=== PATIENT | female | born 1945 | race Caucasian/White ===

== ENCOUNTER 2018-05-27 00:27 | Observation (INO) | payer MEDICARE ==
[2018-05-27] MEDS ORDERED: Diltiazem HCl 125 MG, Admixture Fee 1 EACH in Sodium Chloride 0.9% 100 ML IVPB SCH (03:00)
[2018-05-27] MEDS ORDERED: Ondansetron PF 4 MG/2 ML Vial IVP PRN (03:01)
[2018-05-27] MEDS ORDERED: Acetaminophen 325 MG TAB PO PRN (03:01)
[2018-05-27] MEDS ORDERED: Sodium Chloride 0.9% 1,000 ML IV SCH (03:01)
[2018-05-27] MEDS ORDERED: Ondansetron ODT 4 MG TAB SL PRN (03:01)
[2018-05-27 07:05] LABS: Troponin I 0.035 ng/mL (< 0.028)
[2018-05-27] MEDS ORDERED: Zolpidem Tartrate 5 MG TAB PO PRN (07:44)
--- NOTE | 2018-05-27 08:29 | HP ---
PRIMARY CARE PROVIDER: Sergey Dowell DO HISTORY OF PRESENT ILLNESS: The patient referred to [facility] through [facility] after transfer from [facility]. The patient referred for atrial fibrillation. The patient went to the emergency room with palpitations. She denies chest pain, orthopnea, paroxysmal nocturnal dyspnea, dyspnea on exertion, sweats. PAST MEDICAL HISTORY: Includes paroxysmal atrial fibrillation, dyslipidemia, osteoarthritis. CURRENT MEDICATIONS: 1. Meloxicam 15 mg once a day. 2. Zocor 20 mg a day. 3. Xanax 0.25 mg p.r.n. 4. Metoprolol 100 mg b.i.d. ALLERGIES: CODEINE GIVES GI SYMPTOMATOLOGY, ASPIRIN GIVES GI SYMPTOMATOLOGY. PAST SURGICAL HISTORY: She had a right mastectomy for cancer in 1989, received chemotherapy post. She had a lumpectomy on the left in 1999, received chemotherapy and radiation therapy. She has had L5 spine surgery 15 years ago. FAMILY HISTORY: She has a brother with diabetes. Her mother at 84 of old age. Father at 68 of lung cancer. SOCIAL HISTORY: . Full code status. surrogate decision maker. Tobacco 1/2 pack of cigarettes a day. Occasional beer. No illicit drugs. REVIEW OF SYSTEMS: GENERAL: No headaches, dizziness, fainting. EYES: No double vision, blurred vision, flashing lights. EAR, NOSE, AND THROAT: No ear pain or drainage. No nasal bleeding. No trouble swallowing. CARDIAC: See present Illness. RESPIRATION: No cough, wheezing, or asthma. GASTROINTESTINAL: No nausea, vomiting, diarrhea, constipation, or abdominal pain. GENITOURINARY: No hematuria, dysuria. MUSCULOSKELETAL: No pain or swelling in arms, legs. She has some joint pains for which she takes meloxicam. NEUROLOGIC: No strokes, seizures, or focal weakness. PSYCHIATRIC: Occasional anxiety spells she relates to her children. SKIN: No bruising, bleeding, rash. HEME/LYMPH: No tender or swollen lymph nodes in axilla, inguinal, or cervical area. PHYSICAL EXAMINATION: GENERAL: She is alert, pleasant, cooperative lady, in no acute distress. VITAL SIGNS: Pulse in the ER was 120 and irregular, respirations 17, temperature 98.5, blood pressure 118/60. HEAD, EYES, EARS, NOSE, AND THROAT: Revealed pupils are equal, round, and reactive to light. Extraocular movements are intact. Sclerae are white. Tympanic membranes clear. Nose is clear. Oral mucous membranes are wet. Dental hygiene is good. NECK: Supple without jugular venous distention, adenopathy, or thyromegaly. CHEST: Clear to auscultation and percussion. HEART: Regular rate and rhythm. First and second heart sounds are clear. There are no murmurs or gallops. ABDOMEN: Soft. Bowel sounds are normal. There is no hepatosplenomegaly. No mass. No rebound. EXTREMITIES: Reveal no cyanosis, clubbing, or edema. Joint survey reviews reveal no effusions or deformities. SKIN: Warm and dry without bruises or rash. HEME/LYMPH: No tender or swollen lymph nodes in the axilla, inguinal, or cervical area. PULSES: Carotid, radial, femoral, and dorsalis pedis pulses intact and symmetric. NEUROLOGIC: Cranial nerves 2 through 12 are intact. Deep tendon reflexes intact. Moves all extremities. IMAGING STUDIES: Chest x-ray reviewed by myself, no cardiomegaly, CHF, infiltrate. EKG; atrial fibrillation with rapid ventricular response. No acute ST-T abnormality. LABORATORY DATA: Troponin 0.027, 0.035. Lab done in the [place]; CBC unremarkable. White count 8.6, hemoglobin 12.6, platelet count 215,000. Liver profile is normal. BNP is elevated to 62, BUN is 30, creatinine 1.71. ADMITTING DIAGNOSES: 1. Atrial fibrillation with rapid ventricular response. 2. Dyslipidemia. 3. Chronic kidney disease, stage 3. 4. Osteoarthritis. 5. Tobacco usage. PLAN: Admit observation basis on telemetry. Echocardiogram, thyroid function test. Consult Cardiology, Dr. Rose. We will continue therapeutic Lovenox for now. Job ID: [id number]
[2018-05-27] MEDS ORDERED: Enoxaparin Sodium 80 MG/0.8 ML SYRINGE SC SCH (09:00)
[2018-05-27] MEDS ORDERED: Enoxaparin Sodium 80 MG/0.8 ML SYRINGE ONE (10:03)
[2018-05-27 10:18] LABS: Troponin I 0.027 ng/mL (< 0.028)
[2018-05-27 13:52] VITALS: BMI 29.6
[2018-05-27 13:59] VITALS: BP 122/57; TEMP 98
--- NOTE | 2018-05-27 15:49 | DIS ---
DATE OF ADMISSION: 05/27/2018 DATE OF DISCHARGE: 05/27/2018 TRANSFER OF CARE DISCHARGE DISPOSITION: Discharged home. PRIMARY CARE PROVIDER: Dr. Graham Dowell. FINAL DIAGNOSES: 1. Atrial fibrillation with rapid ventricular response. 2. Dyslipidemia. 3. Osteoarthritis. 4. Tobacco abuse. 5. Chronic kidney disease, stage 3. DISCHARGE MEDICATIONS: 1. Xanax 0.25 mg p.o. p.r.n. 2. Toprol 25 mg p.o. b.i.d. 3. Mobic 15 mg p.o. daily. 4. Eliquis 5 mg p.o. b.i.d. 5. Aspirin 81 mg a day. ALLERGIES: ASPIRIN AND CODEINE. THE ONLY COMPLAINT WITH ASPIRIN HAS TO DO IS STOMACH UPSET AT TIMES. DIET: Heart healthy. CODE STATUS: Full. PENDING AT TIME OF DISCHARGE: Will be discussed in the hospital remuneration. The patient referred to [facility] by [facility] after presenting with atrial fibrillation with rapid ventricular response. She was initially put on diltiazem, converted to regular sinus rhythm spontaneously in emergency room. She was put on therapeutic Lovenox for atrial fibrillation. PERTINENT LABORATORY DATA: TSH is normal. Troponins 0.027, 0.035, 0.027. Laboratory done in [facility]. CBC unremarkable. Creatinine 1.7 and BUN 30. EKG revealed atrial fibrillation, rapid ventricular response. No ST-T abnormality. The patient was seen in consultation by Dr. Italo Rose. She was transitioned from Lovenox to Eliquis. She is being discharged on Eliquis 5 mg b.i.d. She is to call Dr. Rose's office tomorrow to arrange followup within a week, where she will have a stress test and an echocardiogram. Her basic metabolic profile should be repeated at that time due to the abnormal BUN and creatinine. No procedures were done in the hospital. Job ID: [id number]
--- NOTE | 2018-05-27 16:44 | CON ---
DATE OF CONSULTATION: 05/27/2018 REASON FOR CONSULTATION: Atrial fibrillation. HISTORY OF PRESENT ILLNESS: Ms. Caballero is a very pleasant 72-year-old white female, who comes to the hospital for palpitations. She was found to be in rapid atrial fibrillation in the 150. She was started on diltiazem drip, eventually converted back to sinus rhythm. Cardiology is being consulted for further aid with atrial fibrillation. PAST MEDICAL HISTORY: 1. Paroxysmal atrial fibrillation, for which she was placed on metoprolol several years ago. 2. Hyperlipidemia. 3. Osteoarthritis. 4. History of breast cancer. OUTPATIENT MEDICATIONS: Include; 1. Meloxicam. 2. Zocor 20 mg a day. 3. Xanax p.r.n. 4. Metoprolol 100 mg b.i.d. ALLERGIES: 1. CODEINE. 2. ASPIRIN GIVES GI UPSET. PAST SURGICAL HISTORY: 1. Mastectomy in 1989 for breast cancer. 2. Lumpectomy in 1999. 3. L5 spine surgery. FAMILY HISTORY: Brother with diabetes. Mother at 84 of old age. Father with lung cancer in her 60s. SOCIAL HISTORY: No alcohol. No drugs. Tobacco half pack a day. REVIEW OF SYSTEMS: A 12-point review of systems was done and was found to be negative unless stated in the history of present illness. PHYSICAL EXAMINATION: VITAL SIGNS: Temperature 98.0, pulse 84, respiratory rate 15, saturating 96% on room air, and blood pressure 123/57. GENERAL: Awake, alert, and oriented x3. No distress. HEENT: Normocephalic and atraumatic. NECK: Supple. LUNGS: Clear. CARDIOVASCULAR: S1 and S2. No S3 or S4. No murmurs. ABDOMEN: Soft. Positive bowel sounds. EXTREMITIES: No edema. SKIN: Warm and dry. LABORATORY DATA: Laboratory work was reviewed. CBC, troponins, and TSH were reviewed. ASSESSMENT: 1. Atrial fibrillation with rapid ventricular response. 2. Paroxysmal atrial fibrillation. PLAN: 1. We will start on Eliquis 5 mg b.i.d. for stroke prophylaxis as her CHADS-VASc score is 2 with female and age of 72. We will plan on giving her a coupon for Eliquis for free 30 days and probably some samples. We will see her back in the office in 1 month. In the meantime, we will risk stratify with a stress test and an echo. 2. She should be able to go home today. 3. Follow up in the office in 1 month. Thank you for allowing me to participate in the care of your patient. We will sign off. Job ID: [id number]
--- NOTE | 2018-05-31 19:24 | EKG ---
Test Reason : Blood Pressure : / mmHG Vent. Rate : 095 BPM Atrial Rate : 416 BPM P-R Int : 000 ms QRS Dur : 070 ms QT Int : 336 ms P-R-T Axes : 000 -04 017 degrees QTc Int : 422 ms Atrial fibrillation Voltage criteria for left ventricular hypertrophy Abnormal ECG Confirmed by ISMAEL TELLES DO ([id number]), acquisitions editor LESLIE ESTRADA ([id number]) on 05/31/2018 7:23:49 PM Referred By: Confirmed By:ISMAEL TELLES DO
== END 2018-05-27 15:55 | disposition home or self-care (01) ==
LOC: ERS 00:27 → ERHOLD 00:51 → 2SW 13:23
PROVIDERS: ADMIT Hospitalist; ATTEND Hospitalist
DX: I48.0 Paroxysmal atrial fibrillation (principal); E78.5 Hyperlipidemia, unspecified; M19.90 Unspecified osteoarthritis, unspecified site; F17.210 Nicotine dependence, cigarettes, uncomplicated; N18.3 Chronic kidney disease, stage 3 (moderate); Z88.5 Allergy status to narcotic agent; Z88.6 Allergy status to analgesic agent; Z90.11 Acquired absence of right breast and nipple; Z85.3 Personal history of malignant neoplasm of breast; Z92.21 Personal history of antineoplastic chemotherapy; Z92.3 Personal history of irradiation; Z79.82 Long term (current) use of aspirin; Z79.01 Long term (current) use of anticoagulants; Z79.1 Long term (current) use of non-steroidal anti-inflammatories (NSAID); Z79.899 Other long term (current) drug therapy; Z98.890 Other specified postprocedural states
CPT/HCPCS: 84443; 84484 ×2; 93005; 96365; 99285; G0378 ×2; 36415; J1650

== ENCOUNTER 2018-06-02 22:59 | Emergency (ER) | payer MEDICARE ==
[2018-06-02 23:36] LABS: #Basophils 0.1 thou/uL (0.0-0.2); #Eosinphils 0.2 thou/uL (0.0-0.7); #Lymphocytes 2.6 thou/uL (1.20-3.40); #Monocytes 0.7 thou/uL (0.11-0.59); #Neutrophils 5.1 thou/uL (1.40-6.50); %Basophils 1.1 % (0.0-1.0); %Eosinophils 2.5 % (0.0-10.0); %Lymphocytes 29.3 % (21.0-51.0); %Monocytes 8.3 % (0.0-10.0); %Neutrophils 58.8 % (42.0-75.0); Hemoglobin 12.7 g/dL (12.0-16.0); Mean Corpuscular HGB CONC 32.4 g/dL (32.0-36.0); Mean Corpuscular Hemoglobin 31.8 pg (27.0-31.0); Mean Corpuscular Volume 98.1 fL (78.0-98.0); Mean Platelet Volume 7.7 fL (7.4-10.4); Platelet Count 250 thou/uL (130-400); RBC Distribution Width 11.9 % (11.5-14.5); Red Blood Cell (RBC) Count 3.99 mill/uL (4.20-5.40); White Blood Cell (WBC) Count 8.7 thou/uL (4.8-10.8)
[2018-06-03] LABS: ALT (SGPT) 17 U/L (8-55); AST (SGOT) 22 U/L (5-34); Albumin 4.2 g/dL (3.4-4.8); Alkaline Phosphatase 51 U/L (40-150); Anion Gap 14 mmol/L (10-20); BUN (Urea Nitrogen) 23 mg/dL (9.8-20.1); Bilirubin, Total 0.3 mg/dL (0.2-1.2); Calc. Creatinine Clearance 0 mL/min (70-130); Carbon Dioxide 23 mmol/L (23-31); Chloride 108 mmol/L (98-107); Estimated GFR-MDRD 46; Globulin 2.7 g/dL (2.4-3.5); Glucose 97 mg/dL (83-110); Potassium 3.5 mmol/L (3.5-5.1); Protein, Total 6.9 g/dL (6.0-8.3); Sodium 141 mmol/L (136-145)
--- NOTE | 2018-06-03 00:08 | RAD ---
CHEST TWO VIEWS: HISTORY: Tachycardia. FINDINGS: Heart size is within normal limits. There are atherosclerotic changes of the aorta. The lungs are c lear of any infiltrative process. IMPRESSION: No active intrathoracic disease. POS: [facility]
== END 2018-06-03 01:57 | disposition home or self-care (01) ==
LOC: ERS 22:59
DX: R00.2 Palpitations (principal); N18.9 Chronic kidney disease, unspecified; Z71.6 Tobacco abuse counseling; F41.9 Anxiety disorder, unspecified; F17.210 Nicotine dependence, cigarettes, uncomplicated; Z79.899 Other long term (current) drug therapy
CPT/HCPCS: 36415; 71046; 80053; 83735; 84443; 84484; 85025; 93005; 99406

== ENCOUNTER 2018-11-18 01:16 | Observation (INO) | payer MEDICARE ==
[2018-11-18] MEDS ORDERED: Digoxin 0.5 MG/2 ML AMP ONE (01:48)
[2018-11-18 01:54] LABS: #Basophils 0.1 thou/uL (0.0-0.2); #Eosinphils 0.3 thou/uL (0.0-0.7); #Lymphocytes 2.8 thou/uL (1.20-3.40); #Monocytes 0.7 thou/uL (0.11-0.59); #Neutrophils 3.8 thou/uL (1.40-6.50); %Basophils 1.3 % (0.0-1.0); %Eosinophils 3.6 % (0.0-10.0); %Lymphocytes 35.8 % (21.0-51.0); %Monocytes 9.4 % (0.0-10.0); Hemoglobin 13.1 g/dL (12.0-16.0); Mean Corpuscular HGB CONC 33.2 g/dL (32.0-36.0); Mean Corpuscular Hemoglobin 32.4 pg (27.0-31.0); Mean Corpuscular Volume 97.6 fL (78.0-98.0); Mean Platelet Volume 7.5 fL (7.4-10.4); Platelet Count 228 thou/uL (130-400); RBC Distribution Width 12.3 % (11.5-14.5); Red Blood Cell (RBC) Count 4.03 mill/uL (4.20-5.40); White Blood Cell (WBC) Count 7.7 thou/uL (4.8-10.8)
[2018-11-18 02:15] LABS: ALT (SGPT) 11 U/L (8-55); AST (SGOT) 20 U/L (5-34); Albumin 4.1 g/dL (3.4-4.8); Alkaline Phosphatase 47 U/L (40-150); Anion Gap 13 mmol/L (10-20); BUN (Urea Nitrogen) 23 mg/dL (9.8-20.1); Bilirubin, Total 0.2 mg/dL (0.2-1.2); CK (CPK) 108 U/L (29-168); Calc. Creatinine Clearance 0 mL/min (70-130); Calcium 9.9 mg/dL (7.8-10.44); Carbon Dioxide 22 mmol/L (23-31); Chloride 109 mmol/L (98-107); Estimated GFR-MDRD 41; Globulin 2.4 g/dL (2.4-3.5); Glucose 102 mg/dL (83-110); Lipase 66 U/L (8-78); Potassium 4.2 mmol/L (3.5-5.1); Protein, Total 6.5 g/dL (6.0-8.3); Sodium 140 mmol/L (136-145)
[2018-11-18] MEDS ORDERED: Magnesium 2 GM/50 ML BAG (IN WATER) ONE (04:31)
--- NOTE | 2018-11-18 07:55 | RAD ---
PORTABLE CHEST ONE VIEW: 11/18/2018 1:28 a.m. HISTORY: Palpitations. Atrial fibrillation. COMPARISON: 06/02/2018 FINDINGS: The heart size is normal. The aorta is tortuous. The lungs are well expanded without focal areas of consolidation, pneumothoraces, or large pleural effusions. There is a pleural-based density in the r ight lower lateral chest. This should be evaluated with a CT scan. CODE T POS: OFF
[2018-11-18] MEDS ORDERED: Digoxin 0.5 MG/2 ML AMP SLOW IVP SCH (08:30)
--- NOTE | 2018-11-18 16:50 | SS ---
DATE OF ADMISSION: 11/18/2018 DATE OF DISCHARGE: 11/18/2018 CHIEF COMPLAINT: Palpitations. DISCHARGE DIAGNOSES: 1. Atrial fibrillation with rapid ventricular response, status post spontaneous conversion to sinus rhythm. 2. History of paroxysmal atrial fibrillation, followed by Dr. Rose, CHADS-VASc equals 2, on anticoagulation with Eliquis. 3. Tobacco abuse. 4. Chronic kidney disease, stage 3, stable. 5. Pleural-based density, right lateral chest noted on chest x-ray. 6. History of breast cancer, currently in remission. BRIEF HOSPITAL COURSE: Ms. Migdalia Caballero is a pleasant, 73-year-old, female with past medical history significant for paroxysmal atrial fibrillation diagnosed in May of this year, who presented to the hospital with complaints of palpitations. She states this was a little different than previous episodes of atrial fibrillation, in that she could feel her heart beating irregularly and fast. She reports some associated headache and a "tightness" through her throat. She used her home stethoscope as well as her blood pressure cuff, and heart rate was noted to be anywhere from the 140s to 180s and was irregular, and so, she presented to the ER for further workup and treatment. EKG on arrival did show a sustained atrial fibrillation with a ventricular rate of 141 beats per minute. There were no dynamic ST or T-wave changes. In the emergency department, she was given a loading dose of 0.5 mg IV digoxin. The patient did spontaneously convert back to sinus rhythm. Upon my interview, all of her presenting symptoms have completely resolved. She feels well. She denies any chest pain, shortness of breath, nausea, or vomiting. No complaints at this time. I did reach out to her primary licensed occupational therapy assistant, Dr. Rose, who did agree with discharge today. She will continue her Eliquis, and plan will be to initiate antiarrhythmic therapy with 50 mg of flecainide b.i.d. REVIEW OF SYSTEMS: A 12-point review of systems is performed and is negative except as stated above. PAST MEDICAL HISTORY: Paroxysmal atrial fibrillation as mentioned; breast cancer, status post right mastectomy and left breast lumpectomy, status post chemo and radiation, currently in remission; anxiety; hyperlipidemia; and osteoarthritis. PRIMARY CARE PROVIDER: Sergey Dowell DO. PHYSICAL EXAMINATION: VITAL SIGNS: Blood pressure 129/56, pulse 86, sinus rhythm, respirations 21, O2 saturation is 97% on room air. GENERAL: The patient is a thin, female, in no acute distress. HEENT: Head is atraumatic and normocephalic. Mucous membranes are moist. NECK: Trachea is midline. No carotid bruits. CV: S1 and S2. Regular rate and rhythm. No appreciable murmurs, rubs, or gallops. LUNGS: Regular respiratory rate and pattern. Overall, clear to auscultation bilaterally. ABDOMEN: Soft. Positive bowel sounds. Nontender. EXTREMITIES: No edema. NEUROLOGIC: Cranial nerves 2 through 12 are grossly intact. The patient is nonfocal. LABORATORY DATA: White blood cell count 7.7, hemoglobin 13.1, hematocrit 39.4, platelet count is 228. Sodium 140, potassium 4.2, anion gap is 13, BUN is 23, creatinine 1.28. AST, ALT, and alkaline phosphatase all within normal limits. Troponin is negative. TSH 3.02. Lipase 66. BNP 222. DISCHARGE DISPOSITION: Home. DISCHARGE CONDITION: Stable. DISCHARGE INSTRUCTIONS AND FOLLOWUP: The patient will follow up with Dr. Rose in the next 2 weeks. As mentioned previously, Dr. Rose's office will call in prescription for flecainide 50 mg b.i.d., to be taken along with her other home medications, which will not change, which include metoprolol tartrate 25 mg b.i.d., Zocor 20 mg at bedtime, meloxicam 15 mg daily, and Eliquis 5 mg p.o. b.i.d. Regarding the pleural-based density noted on her right lateral chest on the chest x-ray, she will follow up with her PCP, Dr. Dowell for CT scan. The patient does smoke cigarettes, and this was also addressed. She was counseled heavily on tobacco cessation and the risks to her health if she continues. She will follow up with both PCP and Dr. Rose. She will be discharged home in stable condition today. Job ID: [id number]
--- NOTE | 2018-11-25 13:54 | EKG ---
Test Reason : A FIB RVR Blood Pressure : / mmHG Vent. Rate : 088 BPM Atrial Rate : 088 BPM P-R Int : 142 ms QRS Dur : 070 ms QT Int : 358 ms P-R-T Axes : 073 -03 020 degrees QTc Int : 433 ms Normal sinus rhythm Possible Left atrial enlargement Left ventricular hypertrophy Abnormal ECG Confirmed by ALISHA WELLS, TOBI ([id number]), general expeditor LESLIE ESTRADA ([id number]) on 11/25/2018 1:53:27 PM Referred By: Confirmed By:TOBI BRITO MD
--- NOTE | 2018-11-25 13:54 | EKG ---
Test Reason : Blood Pressure : / mmHG Vent. Rate : 141 BPM Atrial Rate : 166 BPM P-R Int : 000 ms QRS Dur : 074 ms QT Int : 310 ms P-R-T Axes : 000 -05 049 degrees QTc Int : 474 ms Atrial fibrillation with rapid ventricular response Voltage criteria for left ventricular hypertrophy Abnormal ECG Confirmed by ALISHA WELLS, TOBI ([id number]), film or videotape editor LESLIE ESTRADA ([id number]) on 11/25/2018 1:53:26 PM Referred By: Confirmed By:TOBI BRITO MD
== END 2018-11-18 10:12 | disposition home or self-care (01) ==
LOC: ERS 01:16 → ERHOLD 03:04
PROVIDERS: ADMIT Family Medicine; ATTEND Family Medicine
DX: I48.91 Unspecified atrial fibrillation (principal); N18.3 Chronic kidney disease, stage 3 (moderate); F17.210 Nicotine dependence, cigarettes, uncomplicated; F41.9 Anxiety disorder, unspecified; M19.90 Unspecified osteoarthritis, unspecified site; C50.919 Malignant neoplasm of unspecified site of unspecified female breast; Z88.5 Allergy status to narcotic agent; Z88.8 Allergy status to other drugs, medicaments and biological substances; Z79.01 Long term (current) use of anticoagulants; Z79.899 Other long term (current) drug therapy
CPT/HCPCS: 36415; 71045; 80053; 82550; 83690; 83880; 84443; 84484; 85025; 93005; 96361; 96365; 96375; J1160; J3475

== ENCOUNTER 2018-12-07 06:33 | Emergency (ER) | payer MEDICARE ==
[2018-12-07 07:05] LABS: #Basophils 0.1 thou/uL (0.0-0.2); #Eosinphils 0.3 thou/uL (0.0-0.7); #Lymphocytes 2.1 thou/uL (1.20-3.40); #Monocytes 0.7 thou/uL (0.11-0.59); #Neutrophils 4.6 thou/uL (1.40-6.50); %Eosinophils 4.4 % (0.0-10.0); %Lymphocytes 26.9 % (21.0-51.0); %Monocytes 8.3 % (0.0-10.0); %Neutrophils 59.4 % (42.0-75.0); Hemoglobin 13.3 g/dL (12.0-16.0); Mean Corpuscular Hemoglobin 32.5 pg (27.0-31.0); Mean Corpuscular Volume 95.7 fL (78.0-98.0); Mean Platelet Volume 7.7 fL (7.4-10.4); Platelet Count 241 thou/uL (130-400); RBC Distribution Width 11.9 % (11.5-14.5); White Blood Cell (WBC) Count 7.8 thou/uL (4.8-10.8)
[2018-12-07 07:30] LABS: ALT (SGPT) 13 U/L (8-55); AST (SGOT) 18 U/L (5-34); Albumin 4.3 g/dL (3.4-4.8); Alkaline Phosphatase 47 U/L (40-150); Anion Gap 14 mmol/L (10-20); BUN (Urea Nitrogen) 19 mg/dL (9.8-20.1); Bilirubin, Total 0.2 mg/dL (0.2-1.2); Calc. Creatinine Clearance 0 mL/min (70-130); Calcium 9.5 mg/dL (7.8-10.44); Carbon Dioxide 22 mmol/L (23-31); Chloride 105 mmol/L (98-107); Estimated GFR-MDRD 59; Globulin 2.6 g/dL (2.4-3.5); Glucose 96 mg/dL (83-110); Potassium 4.3 mmol/L (3.5-5.1); Protein, Total 6.9 g/dL (6.0-8.3); Sodium 137 mmol/L (136-145)
== END 2018-12-07 08:18 | disposition home or self-care (01) ==
LOC: ERS 06:33
DX: I48.0 Paroxysmal atrial fibrillation (principal); F41.9 Anxiety disorder, unspecified; F17.210 Nicotine dependence, cigarettes, uncomplicated; Z79.899 Other long term (current) drug therapy; Z79.01 Long term (current) use of anticoagulants
CPT/HCPCS: 80053; 84443; 84484; 85025; 93005

== ENCOUNTER 2019-04-15 06:23 | Emergency (ER) | payer MEDICARE | END 2019-04-15 06:44 | disposition home or self-care (01) | LOC: ERS 06:23 | DX: I48.92 Unspecified atrial flutter (principal); F17.210 Nicotine dependence, cigarettes, uncomplicated; I48.91 Unspecified atrial fibrillation; M19.90 Unspecified osteoarthritis, unspecified site; Z79.899 Other long term (current) drug therapy | CPT/HCPCS: 93005 ==

== ENCOUNTER 2020-01-20 12:21 | Emergency (ER) | payer MEDICARE, OTHER ==
[2020-01-20] MEDS ORDERED: Metoprolol Tartrate 5 MG/5 ML VIAL ONE (12:46)
[2020-01-20] MEDS ORDERED: Metoprolol Tartrate 25 MG TAB ONE (12:46)
--- NOTE | 2020-01-20 13:15 | RAD ---
XR Chest 1 View Portable History: Chest pain Comparison: Radiograph 2019 Findings: Left axillary surgical clips. Lungs are clear. No pneumothorax or effusion. Cardiac silhoue tte and mediastinal contours are within normal limits. No acute osseous abnormality. Impression: No acute intrathoracic abnormality.
[2020-01-20 13:19] LABS: #Basophils 0.1 thou/uL (0.0-0.2); #Eosinphils 0.4 thou/uL (0.0-0.7); #Lymphocytes 2.2 thou/uL (1.20-3.40); #Monocytes 0.5 thou/uL (0.11-0.59); #Neutrophils 3.9 thou/uL (1.40-6.50); %Basophils 1.3 % (0.0-1.0); %Eosinophils 5.4 % (0.0-10.0); %Lymphocytes 30.8 % (21.0-51.0); %Monocytes 7.5 % (0.0-10.0); Mean Corpuscular HGB CONC 33.7 g/dL (32.0-36.0); Mean Corpuscular Volume 98.2 fL (78.0-98.0); Mean Platelet Volume 8.6 fL (7.4-10.4); Platelet Count 206 thou/uL (130-400); RBC Distribution Width 11.8 % (11.5-14.5); Red Blood Cell (RBC) Count 3.94 mill/uL (4.20-5.40); White Blood Cell (WBC) Count 7.1 thou/uL (4.8-10.8)
== END 2020-01-20 14:17 | disposition home or self-care (01) ==
LOC: ERS 12:21
DX: I48.91 Unspecified atrial fibrillation (principal); F41.9 Anxiety disorder, unspecified; F17.210 Nicotine dependence, cigarettes, uncomplicated; Z79.899 Other long term (current) drug therapy
CPT/HCPCS: 71045; 83880; 84484; 85025; 93005; 96374; 96375

== ENCOUNTER 2020-11-22 12:55 | Outpatient (CLI) | payer MEDICARE | END 2020-11-22 12:56 | disposition home or self-care (01) | LOC: BICMAMMO 12:55 | PROVIDERS: ATTEND Family Medicine | DX: Z12.31 Encounter for screening mammogram for malignant neoplasm of breast (principal); Z85.3 Personal history of malignant neoplasm of breast; Z90.11 Acquired absence of right breast and nipple; Z98.890 Other specified postprocedural states | CPT/HCPCS: 77063; 77067 ==

== ENCOUNTER 2021-01-16 09:03 | Day surgery (SDC) | payer MEDICARE ==
[2021-01-13 13:11] VITALS: BMI 29.2
[2021-01-16] MEDS ORDERED: Heparin 10,000 UNITS/ 10 ML VIAL ONE (10:05)
[2021-01-16] MEDS ORDERED: Isoproterenol 0.2 MG/1 ML AMP ONE (10:05)
[2021-01-16] MEDS ORDERED: Heparin 25,000 units/D5W 500 ML ONE (10:05)
[2021-01-16] MEDS ORDERED: Fentanyl 100 MCG/2 ML VIAL ONE ×2 (10:52→14:19)
[2021-01-16] MEDS ORDERED: Midazolam HCl 2 mg/2 ml Vial ONE (10:52)
[2021-01-16] MEDS ORDERED: PHENYLEPHRINE-NS 100 MCG/ML 10 ML SYRINGE ONE (11:05)
[2021-01-16] MEDS ORDERED: PROPOFOL 200 MG/20 ML VIAL ONE (11:05)
[2021-01-16] MEDS ORDERED: Rocuronium Bromide 10 MG/ML (10ML VIAL) ONE (11:05)
[2021-01-16] MEDS ORDERED: Dexamethasone 20 MG/5 ML VIAL ONE (11:05)
[2021-01-16] MEDS ORDERED: Lidocaine 1% PF 5 ML VIAL ONE (11:05)
[2021-01-16] MEDS ORDERED: Glycopyrrolate 0.2 MG/ML 5 ML SYRINGE ONE (11:05)
[2021-01-16] MEDS ORDERED: ePHEDrine 50 MG/ML VIAL ONE (11:05)
[2021-01-16] MEDS ORDERED: Protamine Sulfate 50 MG/5 ML VIAL ONE (14:05)
[2021-01-16] MEDS ORDERED: Acetaminophen 500 MG TAB ONE (14:39)
[2021-01-16] MEDS ORDERED: Potassium Chloride 20 MEQ TAB PO PRN (16:02)
[2021-01-16] MEDS ORDERED: Furosemide 40 MG TAB PO PRN (16:02)
[2021-01-16] MEDS ORDERED: Sucralfate 1 GM TAB PO SCH (17:00)
== END 2021-01-16 18:05 | disposition home or self-care (01) ==
LOC: CCL 09:03
PROVIDERS: ATTEND Internal Medicine Cardiovascular Disease
PROC: 02583ZZ Destruction of Conduction Mechanism, Percutaneous Approach (ICD-10-PCS; principal; 2021-01-16)
PROC: 02K83ZZ Map Conduction Mechanism, Percutaneous Approach (ICD-10-PCS; 2021-01-16)
PROC: 4A023FZ Measurement of Cardiac Rhythm, Percutaneous Approach (ICD-10-PCS; 2021-01-16)
PROC: 4A0234Z Measurement of Cardiac Electrical Activity, Percutaneous Approach (ICD-10-PCS; 2021-01-16)
DX: I48.0 Paroxysmal atrial fibrillation (principal); I48.92 Unspecified atrial flutter; E03.9 Hypothyroidism, unspecified; I10 Essential (primary) hypertension; E78.5 Hyperlipidemia, unspecified; F17.210 Nicotine dependence, cigarettes, uncomplicated; M19.90 Unspecified osteoarthritis, unspecified site; Z85.3 Personal history of malignant neoplasm of breast; Z79.01 Long term (current) use of anticoagulants; Z79.1 Long term (current) use of non-steroidal anti-inflammatories (NSAID); Z79.82 Long term (current) use of aspirin; Z79.899 Other long term (current) drug therapy; Z88.5 Allergy status to narcotic agent; Z88.6 Allergy status to analgesic agent
CPT/HCPCS: 85347; 93005; 93613; 93623; 93655; 93656; 93657; 93662; C1732; C1759; J1644; J2250; J2720; J3010

== ENCOUNTER 2021-01-20 19:20 | Emergency (ER) | payer MEDICARE ==
[2021-01-20 20:15] LABS: #Eosinphils 0.1 thou/uL (0.0-0.7); #Lymphocytes 1.1 thou/uL (1.20-3.40); #Monocytes 0.9 thou/uL (0.11-0.59); #Neutrophils 7.2 thou/uL (1.40-6.50); %Basophils 0.3 % (0.0-1.0); %Eosinophils 1.5 % (0.0-10.0); %Lymphocytes 11.4 % (21.0-51.0); %Monocytes 9.7 % (0.0-10.0); %Neutrophils 77.1 % (42.0-75.0); Hemoglobin 12.3 g/dL (12.0-16.0); Mean Corpuscular HGB CONC 34.4 g/dL (32.0-36.0); Mean Corpuscular Hemoglobin 33.7 pg (27.0-31.0); Mean Platelet Volume 7.8 fL (7.4-10.4); Platelet Count 229 thou/uL (130-400); Red Blood Cell (RBC) Count 3.65 mill/uL (4.20-5.40); White Blood Cell (WBC) Count 9.3 thou/uL (4.8-10.8)
[2021-01-20 20:36] LABS: ALT (SGPT) 15 U/L (8-55); AST (SGOT) 20 U/L (5-34); Albumin 4.2 g/dL (3.4-4.8); Alkaline Phosphatase 60 U/L (40-110); Anion Gap 15 mmol/L (10-20); BUN (Urea Nitrogen) 32 mg/dL (9.8-20.1); Bilirubin, Total 0.5 mg/dL (0.2-1.2); Calc. Creatinine Clearance 0 mL/min (70-130); Calcium 9.5 mg/dL (7.8-10.44); Carbon Dioxide 27 mmol/L (23-31); Chloride 100 mmol/L (98-107); Glucose 131 mg/dL (83-110); Potassium 4.9 mmol/L (3.5-5.1); Protein, Total 7.2 g/dL (5.8-8.1); Sodium 137 mmol/L (136-145)
== END 2021-01-20 21:53 | disposition home or self-care (01) ==
LOC: ERS 19:20
DX: I48.91 Unspecified atrial fibrillation (principal); R55 Syncope and collapse; M19.90 Unspecified osteoarthritis, unspecified site; F17.210 Nicotine dependence, cigarettes, uncomplicated; Z79.01 Long term (current) use of anticoagulants; Z79.899 Other long term (current) drug therapy
CPT/HCPCS: 36415; 70450; 80053; 85025; 93005

== ENCOUNTER 2021-09-13 10:09 | Outpatient (CLI) | payer MEDICARE | END 2021-09-13 10:10 | disposition home or self-care (01) | LOC: MRI 10:09 | PROVIDERS: ATTEND Orthopaedic Surgery | DX: S46.011A Strain of muscle(s) and tendon(s) of the rotator cuff of right shoulder, initial encounter (principal); M75.121 Complete rotator cuff tear or rupture of right shoulder, not specified as traumatic ==

== ENCOUNTER 2021-11-06 09:14 | Inpatient (IN) | payer MEDICARE, OTHER ==
[2021-11-06 10:12] LABS: #Eosinphils 0.2 thou/uL (0.0-0.7); #Lymphocytes 1.1 thou/uL (1.20-3.40); #Monocytes 0.5 thou/uL (0.11-0.59); #Neutrophils 4.6 thou/uL (1.40-6.50); %Basophils 0.5 % (0.0-1.0); %Eosinophils 2.5 % (0.0-10.0); %Lymphocytes 17.6 % (21.0-51.0); %Monocytes 7.4 % (0.0-10.0); %Neutrophils 71.9 % (42.0-75.0); Hemoglobin 8.6 g/dL (12.0-16.0); Mean Corpuscular HGB CONC 31.6 g/dL (32.0-36.0); Mean Corpuscular Hemoglobin 33.4 pg (27.0-31.0); Platelet Count 196 thou/uL (130-400); RBC Distribution Width 12.1 % (11.5-14.5); Red Blood Cell (RBC) Count 2.56 mill/uL (4.20-5.40); White Blood Cell (WBC) Count 6.4 thou/uL (4.8-10.8)
[2021-11-06 10:31] LABS: ALT (SGPT) 9 U/L (8-55); AST (SGOT) 14 U/L (5-34); Albumin 3.5 g/dL (3.4-4.8); Alkaline Phosphatase 35 U/L (40-110); Anion Gap 11 mmol/L (10-20); BUN (Urea Nitrogen) 60 mg/dL (9.8-20.1); Bilirubin, Total 0.4 mg/dL (0.2-1.2); Calc. Creatinine Clearance 0 mL/min (70-130); Calcium 8.7 mg/dL (7.8-10.44); Carbon Dioxide 23 mmol/L (23-31); Chloride 112 mmol/L (98-107); Estimated GFR 41; Globulin 2.2 g/dL (2.4-3.5); Glucose 100 mg/dL (83-110); Magnesium 1.8 mg/dL (1.6-2.6); Potassium 4.6 mmol/L (3.5-5.1); Protein, Total 5.7 g/dL (5.8-8.1); Sodium 141 mmol/L (136-145)
[2021-11-06 10:52] LABS: CKMB 0.9 ng/mL (0-6.6)
[2021-11-06] MEDS ORDERED: Magnesium 2 GM/50 ML(in water) 2 GM in Premix Bag 1 BAG IVPB SCH (12:00)
[2021-11-06] MEDS ORDERED: Pantoprazole 40 MG VIAL ONE ×2 (12:16→13:37)
[2021-11-06 12:25] LABS: INR-International Normal Ratio 1.2; Prothrombin Time 15.6 sec (12.0-14.7)
[2021-11-06 12:26] LABS: PTT 35.3 sec (22.9-36.1)
[2021-11-06] MEDS ORDERED: Acetaminophen 325 MG TAB PO PRN (12:52)
[2021-11-06] MEDS ORDERED: Ondansetron ODT 4 MG TAB PO PRN (12:52)
[2021-11-06] MEDS ORDERED: Ondansetron PF 4 MG/2 ML Vial IVP PRN (12:52)
[2021-11-06] MEDS ORDERED: Pantoprazole 40 MG VIAL IVP SCH ×3 (13:15→21:00)
[2021-11-06 14:03] LABS: Bilirubin Negative (Negative); Blood, Urine Negative (Negative); Clarity Clear (Clear); Glucose, Urine (Dipstick) Normal (Negative); Ketone, Urine Negative (Negative); Leukocyte Negative Leu/uL (Negative); Nitrite Negative (Negative); Protein, Urine (Dipstick) Negative (Neg-Trace); Specific Gravity, Urine 1.008 (1.002-1.036); Urobilinogen Normal mg/dL (Less than 2)
[2021-11-06 15:36] VITALS: BMI 28.3
[2021-11-06 15:54] LABS: Hemoglobin 9.5 g/dL (12.0-16.0)
[2021-11-06 16:14] LABS: Iron 110 ug/dL (50-170); Iron Binding Capacity, Total 261 mcg/dL (265-497)
[2021-11-06 16:15] LABS: Iron 111 ug/dL (50-170); Iron Binding Capacity, Total 265 mcg/dL (265-497)
[2021-11-06 16:39] LABS: Ferritin 57.43 ng/mL (10-291)
[2021-11-06] MEDS: Sodium Chloride 0.9% 1,000 ML IV SCH (19:14)
[2021-11-06] MEDS: Pantoprazole 80 MG in Sodium Chloride 0.9% 100 ML IVPB SCH (20:26)
[2021-11-06] MEDS: Nicotine 14 MG PATCH TD SCH (20:37)
[2021-11-07 04:11] LABS: #Eosinphils 0.2 thou/uL (0.0-0.7); #Lymphocytes 1.5 thou/uL (1.20-3.40); #Monocytes 0.4 thou/uL (0.11-0.59); #Neutrophils 3.5 thou/uL (1.40-6.50); %Basophils 0.4 % (0.0-1.0); %Eosinophils 3.4 % (0.0-10.0); %Lymphocytes 26.3 % (21.0-51.0); %Monocytes 7.7 % (0.0-10.0); %Neutrophils 62.3 % (42.0-75.0); Hemoglobin 8.6 g/dL (12.0-16.0); Mean Corpuscular HGB CONC 32.7 g/dL (32.0-36.0); Mean Corpuscular Hemoglobin 33.4 pg (27.0-31.0); Mean Platelet Volume 7.9 fL (7.4-10.4); Platelet Count 161 thou/uL (130-400); RBC Distribution Width 13.5 % (11.5-14.5); Red Blood Cell (RBC) Count 2.59 mill/uL (4.20-5.40); White Blood Cell (WBC) Count 5.6 thou/uL (4.8-10.8)
[2021-11-07 04:17] LABS: ALT (SGPT) 7 U/L (8-55); AST (SGOT) 16 U/L (5-34); Albumin 3.1 g/dL (3.4-4.8); Alkaline Phosphatase 30 U/L (40-110); Anion Gap 10 mmol/L (10-20); BUN (Urea Nitrogen) 30 mg/dL (9.8-20.1); Bilirubin, Total 0.4 mg/dL (0.2-1.2); Calc. Creatinine Clearance 51 mL/min (70-130); Calcium 8.4 mg/dL (7.8-10.44); Carbon Dioxide 18 mmol/L (23-31); Chloride 117 mmol/L (98-107); Estimated GFR 56; Globulin 1.9 g/dL (2.4-3.5); Glucose 84 mg/dL (83-110); Potassium 4.3 mmol/L (3.5-5.1); Sodium 141 mmol/L (136-145)
[2021-11-07] MEDS: Pantoprazole 80 MG in Sodium Chloride 0.9% 100 ML IVPB SCH (04:56)
[2021-11-07] MEDS: Sodium Chloride 0.9% 1,000 ML IV SCH ×2 (09:37→22:47)
[2021-11-07] MEDS ORDERED: Lidocaine 1% PF 5 ML VIAL ONE (12:47)
[2021-11-07] MEDS ORDERED: PROPOFOL 200 MG/20 ML VIAL ONE (12:47)
[2021-11-07] MEDS ORDERED: Esmolol 100 MG/10 ML VIAL ONE (12:47)
[2021-11-07] MEDS: Nicotine 14 MG PATCH TD SCH (14:58)
[2021-11-07] MEDS ORDERED: Metoprolol Tartrate 25 MG TAB PO SCH (21:00)
[2021-11-08 07:05] LABS: #Eosinphils 0.2 thou/uL (0.0-0.7); #Lymphocytes 1.1 thou/uL (1.20-3.40); #Monocytes 0.4 thou/uL (0.11-0.59); #Neutrophils 3.3 thou/uL (1.40-6.50); %Basophils 0.5 % (0.0-1.0); %Eosinophils 3.9 % (0.0-10.0); %Lymphocytes 22.4 % (21.0-51.0); %Monocytes 7.8 % (0.0-10.0); %Neutrophils 65.4 % (42.0-75.0); Hemoglobin 8.7 g/dL (12.0-16.0); Mean Corpuscular HGB CONC 33.4 g/dL (32.0-36.0); Mean Corpuscular Hemoglobin 33.2 pg (27.0-31.0); Mean Corpuscular Volume 99.5 fL (78.0-98.0); Mean Platelet Volume 7.5 fL (7.4-10.4); Platelet Count 164 thou/uL (130-400); RBC Distribution Width 13.1 % (11.5-14.5); Red Blood Cell (RBC) Count 2.62 mill/uL (4.20-5.40); White Blood Cell (WBC) Count 5.1 thou/uL (4.8-10.8)
[2021-11-08 07:23] VITALS: TEMP 98.2
[2021-11-08 07:23] LABS: ALT (SGPT) 8 U/L (8-55); AST (SGOT) 19 U/L (5-34); Albumin 3.3 g/dL (3.4-4.8); Alkaline Phosphatase 33 U/L (40-110); Anion Gap 12 mmol/L (10-20); BUN (Urea Nitrogen) 15 mg/dL (9.8-20.1); Bilirubin, Total 0.5 mg/dL (0.2-1.2); Calc. Creatinine Clearance 49 mL/min (70-130); Calcium 8.8 mg/dL (7.8-10.44); Carbon Dioxide 22 mmol/L (23-31); Chloride 112 mmol/L (98-107); Estimated GFR 53; Globulin 2.1 g/dL (2.4-3.5); Glucose 96 mg/dL (83-110); Potassium 4.2 mmol/L (3.5-5.1); Protein, Total 5.4 g/dL (5.8-8.1); Sodium 142 mmol/L (136-145)
== END 2021-11-08 12:10 | disposition home or self-care (01) | DRG 378 ==
LOC: ERS 09:14 → ERHOLD 11:48 → OBSVTOIN 13:43 → IMCU/EMU 15:29
PROVIDERS: ADMIT Family Medicine; ATTEND Family Medicine
PROC: 30233N1 Transfusion of Nonautologous Red Blood Cells into Peripheral Vein, Percutaneous Approach (ICD-10-PCS; 2021-11-06)
PROC: 0DB78ZX Excision of Stomach, Pylorus, Via Natural or Artificial Opening Endoscopic, Diagnostic (ICD-10-PCS; principal; 2021-11-07)
DX: K29.71 Gastritis, unspecified, with bleeding (principal); D62 Acute posthemorrhagic anemia; N17.9 Acute kidney failure, unspecified; Z20.822 Contact with and (suspected) exposure to COVID-19; K25.4 Chronic or unspecified gastric ulcer with hemorrhage; R77.8 Other specified abnormalities of plasma proteins; F41.9 Anxiety disorder, unspecified; M19.90 Unspecified osteoarthritis, unspecified site; I48.0 Paroxysmal atrial fibrillation; E78.5 Hyperlipidemia, unspecified; F17.210 Nicotine dependence, cigarettes, uncomplicated; E05.90 Thyrotoxicosis, unspecified without thyrotoxic crisis or storm; N18.30 Chronic kidney disease, stage 3 unspecified; I12.9 Hypertensive chronic kidney disease with stage 1 through stage 4 chronic kidney disease, or unspecified chronic kidney disease; Z88.5 Allergy status to narcotic agent; Z88.8 Allergy status to other drugs, medicaments and biological substances; Z79.899 Other long term (current) drug therapy; Z79.01 Long term (current) use of anticoagulants; Z79.82 Long term (current) use of aspirin; Z79.1 Long term (current) use of non-steroidal anti-inflammatories (NSAID); Z85.3 Personal history of malignant neoplasm of breast; Z90.11 Acquired absence of right breast and nipple; Z98.890 Other specified postprocedural states; Z79.890 Hormone replacement therapy
CPT/HCPCS: 36415; 36430; 71045; 80053; 81003; 82274; 82553; 82607; 82728; 83540; 83550; 83735; 84443; 84484; 85025; 85610; 85730; 86850; 86900; 86901; 88305; 88342; 93005; 96361; 96365; 96366; 96368; C9113; G0378; J2704; J3475; J3490; J7050; P9016; U0003; U0005

== ENCOUNTER 2022-03-05 10:46 | Outpatient (CLI) | payer MEDICARE ==
[2022-03-05 11:24] LABS: #Eosinphils 0.2 10x3/uL (0.0-0.5); #Monocytes 0.6 10x3/uL (0.0-1.1); #Neutrophils 4.1 10x3/uL (1.5-8.4); %Basophils 0.6 % (0.0-2.0); %Eosinophils 3.5 % (0.0-6.0); %Lymphocytes 22.6 % (18.0-47.0); %Monocytes 9.1 % (0.0-10.0); %Neutrophils 63.9 % (40.0-75.0); Mean Corpuscular HGB CONC 33.5 g/dL (32.0-36.0); Mean Corpuscular Hemoglobin 30.9 pg (27.0-33.0); Mean Corpuscular Volume 92.3 fl (81.6-98.3); Mean Platelet Volume 9.6 fl (7.4-10.4); Platelet Count 268 10x3/uL (150-450); RBC Distribution Width 14.2 % (11.5-14.5); Red Blood Cell (RBC) Count 3.88 10x6/uL (3.90-5.03); White Blood Cell (WBC) Count 6.3 10x3/uL (3.5-10.5)
[2022-03-05 11:49] LABS: Anion Gap 14 mmol/L (10-20); BUN (Urea Nitrogen) 16 mg/dL (9.8-20.1); Calc. Creatinine Clearance 0 mL/min (70-130); Calcium 9.2 mg/dL (7.8-10.44); Carbon Dioxide 24 mmol/L (23-31); Chloride 105 mmol/L (98-107); Estimated GFR 52; Glucose 97 mg/dL (83-110); Potassium 4.4 mmol/L (3.5-5.1); Sodium 139 mmol/L (136-145)
== END 2022-03-05 10:47 | disposition home or self-care (01) ==
LOC: LABBT 10:46
PROVIDERS: ATTEND Orthopaedic Surgery
DX: S46.011A Strain of muscle(s) and tendon(s) of the rotator cuff of right shoulder, initial encounter (principal); X58.XXXA Exposure to other specified factors, initial encounter
CPT/HCPCS: 80048; 85025; 93005; 93010

== ENCOUNTER 2022-03-08 07:12 | Day surgery (SDC) | payer MEDICARE, OTHER ==
[2022-03-07 11:20] VITALS: BMI 25.9
[2022-03-08] MEDS ORDERED: CEFAZOLIN 2 GM VIAL ONE (08:02)
[2022-03-08] MEDS ORDERED: Sodium Chloride 0.9% 100 ML ONE ×2 (08:02→08:03)
[2022-03-08] MEDS ORDERED: Lidocaine 1% MPF 2 ML VIAL ONE (08:02)
[2022-03-08] MEDS ORDERED: Vancomycin 1 GM/200 ML (FROZEN) BAG ONE (08:03)
[2022-03-08] MEDS ORDERED: Tranexamic Acid 1,000 MG/10 ML VIAL ONE (08:03)
[2022-03-08] MEDS ORDERED: Midazolam HCl 2 mg/2 ml Vial ONE (08:40)
[2022-03-08] MEDS ORDERED: Ropivacaine 0.5% HCl/PF (150 MG/30 ML VIAL) ONE (08:40)
[2022-03-08] MEDS ORDERED: FENTANYL 50 MCG/ML 1 ML VIAL ONE (08:40)
[2022-03-08] MEDS ORDERED: fentaNYL PF 100 MCG/2 ML SYRINGE ONE ×2 (09:58→12:05)
[2022-03-08] MEDS ORDERED: Glycopyrrolate 0.2 MG/ML 5 ML SYRINGE ONE (10:16)
[2022-03-08] MEDS ORDERED: NEOSTIGMINE 3 MG/3 ML SYR 3 MG/3 ML SYRINGE ONE (10:16)
[2022-03-08] MEDS ORDERED: Rocuronium Bromide 10 MG/ML (10ML VIAL) ONE (10:16)
[2022-03-08] MEDS ORDERED: ePHEDrine 50 MG/ML VIAL ONE (10:16)
[2022-03-08] MEDS ORDERED: PHENYLEPHRINE-NS 100 MCG/ML 10 ML SYRINGE ONE (10:16)
[2022-03-08] MEDS ORDERED: Ondansetron PF 4 MG/2 ML Vial ONE (10:16)
[2022-03-08] MEDS ORDERED: Dexamethasone 20 MG/5 ML VIAL ONE (10:16)
[2022-03-08] MEDS ORDERED: PROPOFOL 200 MG/20 ML VIAL ONE (10:16)
[2022-03-08] MEDS ORDERED: SUGAMMADEX SODIUM 200 MG/2 ML VIAL ONE (11:44)
== END 2022-03-08 14:21 | disposition home or self-care (01) ==
LOC: SDC 07:12
PROVIDERS: ATTEND Orthopaedic Surgery
PROC: 0RRJ00Z Replacement of Right Shoulder Joint with Reverse Ball and Socket Synthetic Substitute, Open Approach (ICD-10-PCS; principal; 2022-03-08)
DX: S46.011A Strain of muscle(s) and tendon(s) of the rotator cuff of right shoulder, initial encounter (principal); M75.21 Bicipital tendinitis, right shoulder; E78.5 Hyperlipidemia, unspecified; Z85.3 Personal history of malignant neoplasm of breast; Z79.82 Long term (current) use of aspirin; Z79.899 Other long term (current) drug therapy; Z88.5 Allergy status to narcotic agent; W17.89XA Other fall from one level to another, initial encounter
CPT/HCPCS: 23472; 93005; C1713 ×4; C1776 ×3; J3370; 93010; J1100; J2250; J2405; J2704; J2795; J3010; J3490

== ENCOUNTER 2022-06-30 00:37 | Emergency (ER) | payer MEDICARE, OTHER ==
[2022-06-30] MEDS ORDERED: Magnesium 2 GM/50 ML BAG (IN WATER) ONE (01:02)
[2022-06-30] MEDS ORDERED: FENTANYL 50 MCG/ML 1 ML VIAL ONE (01:17)
[2022-06-30 01:20] LABS: #Basophils 0.1 thou/uL (0.0-0.2); #Eosinphils 0.2 thou/uL (0.0-0.7); #Lymphocytes 2.5 thou/uL (1.20-3.40); #Monocytes 0.7 thou/uL (0.11-0.59); #Neutrophils 5.9 thou/uL (1.40-6.50); %Basophils 0.7 % (0.0-1.0); %Lymphocytes 26.3 % (21.0-51.0); %Monocytes 7.9 % (0.0-10.0); %Neutrophils 63.1 % (42.0-75.0); Mean Corpuscular HGB CONC 33.8 g/dL (32.0-36.0); Mean Corpuscular Hemoglobin 32.9 pg (27.0-31.0); Mean Corpuscular Volume 97.1 fl (78.0-98.0); Mean Platelet Volume 7.8 fL (7.4-10.4); Platelet Count 260 10x3/uL (130-400); RBC Distribution Width 12.1 % (11.5-14.5); Red Blood Cell (RBC) Count 3.95 mill/uL (4.20-5.40); White Blood Cell (WBC) Count 9.4 10x3/uL (4.8-10.8)
[2022-06-30 01:41] LABS: ALT (SGPT) 9 U/L (8-55); AST (SGOT) 21 U/L (5-34); Albumin 4.3 g/dL (3.4-4.8); Alkaline Phosphatase 61 U/L (40-110); Anion Gap 14 mmol/L (10-20); BUN (Urea Nitrogen) 25 mg/dL (9.8-20.1); Bilirubin, Total 0.2 mg/dL (0.2-1.2); Calc. Creatinine Clearance 0 mL/min (70-130); Calcium 9.7 mg/dL (7.8-10.44); Carbon Dioxide 24 mmol/L (23-31); Chloride 102 mmol/L (98-107); Estimated GFR 42; Globulin 3.1 g/dL (2.4-3.5); Glucose 87 mg/dL (83-110); Potassium 3.9 mmol/L (3.5-5.1); Protein, Total 7.4 g/dL (5.8-8.1); Sodium 136 mmol/L (136-145)
== END 2022-06-30 02:05 | disposition home or self-care (01) ==
LOC: ERS 00:37
DX: I48.91 Unspecified atrial fibrillation (principal); I10 Essential (primary) hypertension; F17.210 Nicotine dependence, cigarettes, uncomplicated; Z79.82 Long term (current) use of aspirin; Z79.01 Long term (current) use of anticoagulants; Z79.899 Other long term (current) drug therapy
CPT/HCPCS: 71045; 83735; 84484; 93005; J3010; 80053; 84443; 85025; 96372; 96374; 96375; J1650; J3475

== ENCOUNTER 2022-07-22 18:40 | Emergency (ER) | payer MEDICARE, OTHER ==
[2022-07-22 19:07] LABS: #Basophils 0.1 thou/uL (0.0-0.2); #Eosinphils 0.2 thou/uL (0.0-0.7); #Lymphocytes 1.9 thou/uL (1.20-3.40); #Monocytes 0.6 thou/uL (0.11-0.59); #Neutrophils 3.4 thou/uL (1.40-6.50); %Basophils 0.9 % (0.0-1.0); %Eosinophils 3.2 % (0.0-10.0); %Lymphocytes 31.2 % (21.0-51.0); %Monocytes 9.4 % (0.0-10.0); %Neutrophils 55.3 % (42.0-75.0); Hemoglobin 12.6 g/dL (12.0-16.0); Mean Corpuscular HGB CONC 34.1 g/dL (32.0-36.0); Mean Corpuscular Hemoglobin 33.2 pg (27.0-31.0); Mean Corpuscular Volume 97.3 fl (78.0-98.0); Mean Platelet Volume 7.5 fL (7.4-10.4); Platelet Count 250 10x3/uL (130-400); RBC Distribution Width 12.2 % (11.5-14.5); Red Blood Cell (RBC) Count 3.78 mill/uL (4.20-5.40); White Blood Cell (WBC) Count 6.2 10x3/uL (4.8-10.8)
[2022-07-22 19:15] LABS: PTT 36.3 sec (22.9-36.1); Prothrombin Time 13.6 sec (12.0-14.7)
[2022-07-22 19:30] LABS: ALT (SGPT) 9 U/L (8-55); AST (SGOT) 20 U/L (5-34); Albumin 4.4 g/dL (3.4-4.8); Alkaline Phosphatase 66 U/L (40-110); Anion Gap 13 mmol/L (10-20); BUN (Urea Nitrogen) 21 mg/dL (9.8-20.1); Bilirubin, Total 0.2 mg/dL (0.2-1.2); Calc. Creatinine Clearance 0 mL/min (70-130); Calcium 9.5 mg/dL (7.8-10.44); Carbon Dioxide 25 mmol/L (23-31); Chloride 107 mmol/L (98-107); Estimated GFR 43; Globulin 2.7 g/dL (2.4-3.5); Glucose 123 mg/dL (83-110); Magnesium 2.1 mg/dL (1.6-2.6); Potassium 4.3 mmol/L (3.5-5.1); Protein, Total 7.1 g/dL (5.8-8.1); Sodium 141 mmol/L (136-145)
== END 2022-07-22 19:38 | disposition left against medical advice (07) ==
LOC: ERS 18:40
DX: Z53.21 Procedure and treatment not carried out due to patient leaving prior to being seen by health care provider (principal)
CPT/HCPCS: 36415; 80053; 83735; 84484; 85025; 85610; 85730; 93005

== ENCOUNTER 2022-08-04 14:38 | Emergency (ER) | payer MEDICARE, OTHER ==
[2022-08-04 15:05] LABS: #Eosinphils 0.2 thou/uL (0.0-0.7); #Lymphocytes 1.8 thou/uL (1.20-3.40); #Monocytes 0.6 thou/uL (0.11-0.59); #Neutrophils 3.3 thou/uL (1.40-6.50); %Basophils 0.4 % (0.0-1.0); %Eosinophils 3.1 % (0.0-10.0); %Lymphocytes 30.8 % (21.0-51.0); %Monocytes 9.6 % (0.0-10.0); %Neutrophils 56.1 % (42.0-75.0); Hemoglobin 11.9 g/dL (12.0-16.0); Mean Corpuscular HGB CONC 34.6 g/dL (32.0-36.0); Mean Corpuscular Hemoglobin 33.5 pg (27.0-31.0); Mean Corpuscular Volume 96.9 fl (78.0-98.0); Mean Platelet Volume 7.5 fL (7.4-10.4); Platelet Count 203 10x3/uL (130-400); RBC Distribution Width 12.4 % (11.5-14.5); Red Blood Cell (RBC) Count 3.54 mill/uL (4.20-5.40); White Blood Cell (WBC) Count 5.9 10x3/uL (4.8-10.8)
[2022-08-04 15:33] LABS: ALT (SGPT) 9 U/L (8-55); AST (SGOT) 20 U/L (5-34); Albumin 3.9 g/dL (3.4-4.8); Alkaline Phosphatase 53 U/L (40-110); Anion Gap 16 mmol/L (10-20); BUN (Urea Nitrogen) 20 mg/dL (9.8-20.1); Bilirubin, Total 0.3 mg/dL (0.2-1.2); Calc. Creatinine Clearance 0 mL/min (70-130); Calcium 9.2 mg/dL (7.8-10.44); Carbon Dioxide 20 mmol/L (23-31); Chloride 109 mmol/L (98-107); Estimated GFR 48; Globulin 2.8 g/dL (2.4-3.5); Glucose 105 mg/dL (83-110); Magnesium 2.1 mg/dL (1.6-2.6); Potassium 4.5 mmol/L (3.5-5.1); Protein, Total 6.7 g/dL (5.8-8.1); Sodium 140 mmol/L (136-145)
== END 2022-08-04 16:11 | disposition home or self-care (01) ==
LOC: ERS 14:38
DX: I48.91 Unspecified atrial fibrillation (principal); I10 Essential (primary) hypertension; F17.210 Nicotine dependence, cigarettes, uncomplicated
CPT/HCPCS: 71045; 80053; 83735; 83880; 84484; 85025; 93005

== ENCOUNTER 2022-12-20 14:44 | Outpatient (CLI) | payer MEDICARE | END 2022-12-20 14:45 | disposition home or self-care (01) | LOC: ULT 14:44 | PROVIDERS: ATTEND Family Medicine | DX: R09.89 Other specified symptoms and signs involving the circulatory and respiratory systems (principal) | CPT/HCPCS: 93880 ==

== ENCOUNTER 2023-01-07 12:29 | Outpatient (CLI) | payer MEDICARE ==
[~2023-01-07 12:29] MED LIST: Iopamidol 370 76% 100 ML VIAL ONE
== END 2023-01-07 12:30 | disposition home or self-care (01) ==
LOC: CT 12:29
PROVIDERS: ATTEND Thoracic Surgery (Cardiothoracic Vascular Surgery)
DX: R09.89 Other specified symptoms and signs involving the circulatory and respiratory systems (principal)
CPT/HCPCS: 70498; 82565; Q9967

== ENCOUNTER 2023-01-14 11:00 | Inpatient (IN) | payer MEDICARE ==
[2023-02-08] MEDS ORDERED: Midazolam HCl 2 mg/2 ml Vial ONE (11:32)
[2023-02-08] MEDS ORDERED: Bupivacaine PF 0.5% 30 ML VIAL ONE (11:47)
[2023-02-08] MEDS ORDERED: Dexamethasone 4 mg/ml Vial ONE (11:47)
[2023-02-08] MEDS ORDERED: Heparin 5,000 UNITS/ML VIAL ONE (11:47)
[2023-02-08] MEDS ORDERED: Dexmedetomidine 200 MCG/2 ML VIAL ONE (11:47)
[2023-02-08] MEDS ORDERED: Protamine Sulfate 50 MG/5 ML VIAL ONE (11:47)
[2023-02-08] MEDS ORDERED: fentaNYL PF 100 MCG/2 ML SYRINGE ONE (11:57)
[2023-02-08] MEDS ORDERED: Phenylephrine 10 MG/ML VIAL ONE (11:57)
[2023-02-08] MEDS ORDERED: CEFAZOLIN 2 GM VIAL ONE (12:06)
[2023-02-08] MEDS ORDERED: SUGAMMADEX SODIUM 200 MG/2 ML VIAL ONE (12:06)
[2023-02-08] MEDS ORDERED: Sodium Chloride 0.9% 100 ML ONE (12:06)
[2023-02-08] MEDS ORDERED: Metoprolol Tartrate 5 MG/5 ML VIAL ONE (12:23)
[2023-02-08] MEDS ORDERED: Rocuronium Bromide 10 MG/ML (10ML VIAL) ONE (12:23)
[2023-02-08] MEDS ORDERED: ePHEDrine Sulfate 50 MG/10 ML VIAL ONE ×2 (12:23→13:33)
[2023-02-08] MEDS ORDERED: NEOSTIGMINE 3 MG/3 ML SYR 3 MG/3 ML SYRINGE ONE (12:23)
[2023-02-08] MEDS ORDERED: PROPOFOL 200 MG/20 ML VIAL ONE (12:23)
[2023-02-08] MEDS ORDERED: Lidocaine 1% PF 5 ML VIAL ONE (12:23)
[2023-02-08] MEDS ORDERED: Glycopyrrolate 0.2 MG/ML 5 ML SYRINGE ONE ×2 (12:23)
[2023-02-08] MEDS ORDERED: Ondansetron PF 4 MG/2 ML Vial ONE (12:23)
[2023-02-08] MEDS ORDERED: Dexamethasone 20 MG/5 ML VIAL ONE (12:23)
[2023-02-08] MEDS ORDERED: Promethazine HCl 25 MG/ML VIAL IM PRN (12:41)
[2023-02-08] MEDS ORDERED: Ondansetron HCl/PF 4 MG/2 ML Vial IVP PRN (12:41)
[2023-02-08] MEDS ORDERED: PHENYLEPHRINE-NS 100 MCG/ML 10 ML SYRINGE ONE (13:33)
[2023-02-08] MEDS ORDERED: traMADol HCl 50 MG TAB PO PRN (13:38)
[2023-02-08] MEDS ORDERED: Acetaminophen 500 MG TAB PO PRN (13:38)
[2023-02-08] MEDS ORDERED: Nitroglycerin 50 MG/250 ML BOT 250 ML IVPB PRN (13:38)
[2023-02-08] MEDS ORDERED: hydrALAZINE 20 MG/ML VIAL SLOW IVP PRN (13:38)
[2023-02-08] MEDS ORDERED: Acetaminophen 325 MG TAB PO PRN (13:38)
[2023-02-08] MEDS ORDERED: Ipratropium/Albuterol 3 ML NEB NEB PRN (13:38)
[2023-02-08] MEDS ORDERED: Ondansetron PF 4 MG/2 ML Vial IVP PRN (13:38)
[2023-02-08] MEDS ORDERED: Sodium Chloride 0.9% 1,000 ML IV SCH (13:38)
[2023-02-08] MEDS ORDERED: fentaNYL 50 mcg/mL 1 mL Vial SLOW IVP PRN (13:38)
[2023-02-08] MEDS ORDERED: Phenylephrine 40 MG/NS 250 ML 40 MG in Premix Bag 1 BAG IVPB PRN (13:53)
[2023-02-08] MEDS ORDERED: Acetaminophen 325 MG TAB ONE (13:58)
[2023-02-08] MEDS ORDERED: fentaNYL 50 mcg/mL 1 mL Vial ONE (14:04)
[2023-02-08 16:24] VITALS: BMI 26.6
[2023-02-08] MEDS ORDERED: FLU VACC QS2023(65UP)/MF59C/PF 60 MCG/0.5 ML SYRINGE IM ONE (16:45)
[2023-02-08] MEDS: Ipratropium/Albuterol 3 ML NEB NEB SCH (19:19)
[2023-02-08] MEDS ORDERED: Atorvastatin Calcium 10 MG TAB PO SCH (21:00)
[2023-02-08] MEDS: Metoprolol Tartrate 25 MG TAB PO SCH (21:56)
[2023-02-08] MEDS: CEFAZOLIN 2 GM in Sodium Chloride 0.9% 100 ML IVPB SCH (21:56)
[2023-02-09] MEDS: Ipratropium/Albuterol 3 ML NEB NEB SCH ×2 (01:59→08:12)
[2023-02-09] MEDS: CEFAZOLIN 2 GM in Sodium Chloride 0.9% 100 ML IVPB SCH (05:52)
[2023-02-09] MEDS: Metoprolol Tartrate 25 MG TAB PO SCH (07:56)
[2023-02-09 08:20] VITALS: TEMP 98.2
[2023-02-09] MEDS ORDERED: Losartan 25 MG TAB PO SCH (09:00)
[2023-02-09] MEDS ORDERED: Aspirin 81 mg Enteric Coated Tablet PO SCH (09:00)
== END 2023-02-09 11:53 | disposition home or self-care (01) | DRG 36 ==
LOC: SURG A 02-08 07:07 → CCU 02-08 17:30
PROVIDERS: ADMIT Thoracic Surgery (Cardiothoracic Vascular Surgery); ATTEND Thoracic Surgery (Cardiothoracic Vascular Surgery)
PROC: 037K3DZ Dilation of Right Internal Carotid Artery with Intraluminal Device, Percutaneous Approach (ICD-10-PCS; principal; 2023-02-08)
DX: I65.21 Occlusion and stenosis of right carotid artery (principal); F41.9 Anxiety disorder, unspecified; E78.5 Hyperlipidemia, unspecified; I48.91 Unspecified atrial fibrillation; C50.919 Malignant neoplasm of unspecified site of unspecified female breast; Z79.899 Other long term (current) drug therapy; Z79.01 Long term (current) use of anticoagulants; Z88.8 Allergy status to other drugs, medicaments and biological substances
CPT/HCPCS: 94640; C1725; C1769; C1876; C1884; J1100; J1644; J2250; J2370; J2405; J2704; J2720; J3010; J3490; J7620; S0020

== ENCOUNTER 2023-02-07 09:56 | Outpatient (CLI) | payer MEDICARE ==
[2023-02-07 11:36] LABS: Hematocrit 36.8 % (34.9-44.5); Hemoglobin 11.8 g/dL (12.0-15.5); Mean Corpuscular HGB CONC 32.1 g/dL (32.0-36.0); Mean Corpuscular Hemoglobin 30.6 pg (27.0-33.0); Mean Corpuscular Volume 95.3 fl (81.6-98.3); Mean Platelet Volume 10.5 fl (7.4-10.4); Platelet Count 256 10x3/uL (150-450); RBC Distribution Width 13.9 % (11.5-14.5); Red Blood Cell (RBC) Count 3.86 10x6/uL (3.90-5.03); White Blood Cell (WBC) Count 6.6 10x3/uL (3.5-10.5)
[2023-02-07 12:07] LABS: Anion Gap 16 mmol/L (10-20); BUN (Urea Nitrogen) 23 mg/dL (9.8-20.1); Calc. Creatinine Clearance 0 mL/min (70-130); Calcium 9.3 mg/dL (7.8-10.44); Carbon Dioxide 23 mmol/L (23-31); Chloride 106 mmol/L (98-107); Estimated GFR 36; Glucose 84 mg/dL (83-110); Potassium 4.7 mmol/L (3.5-5.1); Sodium 140 mmol/L (136-145)
== END 2023-02-07 09:57 | disposition home or self-care (01) ==
LOC: LABBT 09:56
PROVIDERS: ATTEND Thoracic Surgery (Cardiothoracic Vascular Surgery)
DX: Z01.812 Encounter for preprocedural laboratory examination (principal); I65.21 Occlusion and stenosis of right carotid artery
CPT/HCPCS: 80048; 85027